=== PATIENT | male | born 1965 | race Caucasian/White ===

== ENCOUNTER 2023-05-24 18:32 | Inpatient (IN) | payer MEDICARE, MEDICAID, SELFPAY ==
[2023-05-24] VITALS (10 sets, daily range): BP systolic 136–166; BP diastolic 94–112; PULSE 109–135; RESP 12–21; TEMP 36.4–36.6; O2SAT 88–100
--- NOTE | ~2023-05-24 | CT_ITS ---
EXAMINATION: CTA chest PE protocol DATE: 05/24/2023 23:14 INDICATION: Hypoxia TECHNIQUE: Computed tomography angiography (CTA) of the chest was performed with 100 mL Omnipaque-350 intravenous contrast timed to evaluate the pulmonary arteries. Coronal maximum intensity projection 3D-reconstructions were created by the technologist. The dose-length product (DLP) was 469.98 mGy-cm. Automated exposure control and iterative reconstruction technique were employed. COMPARISON: None. FINDINGS: The pulmonary arteries are well-opacified. No pulmonary embolism is identified. There are s mall to moderate-sized pleural effusions. Cardiomegaly is noted. There is bilateral hilar and mediast inal lymphadenopathy. There is no pneumothorax. There are airspace opacities medially in the upper lo bes as well as in the dependent aspect of the lower lobes. There is smooth interlobular septal [place]. There is moderate thoracic spondylosis. There is severe spondylosis of the visualized lower cer vical spine. There is a small pericardial effusion. There is a 3 mm nonobstructing stone of the left kidney. IMPRESSION: 1. No pulmonary embolus identified. 2. Cardiomegaly with pulmonary edema. 3. Airspace opacities of the upper and lower lobes, consistent with pneumonia. 4. Small to moderate-sized pleural effusions. Reviewed, dictated and finalized at location F.
--- NOTE | ~2023-05-24 | XR_ITS ---
EXAMINATION: XR chest 1V portable INDICATION: Shortness of breath TECHNIQUE: Portable AP chest at 2001 hours COMPARISON: 06/11/2010 FINDINGS: Cardiomegaly is noted. There are diffuse interstitial and airspace opacities. Small pleural effusions are suggested. There is no pneumothorax. IMPRESSION: 1. Diffuse lung disease which may reflect pneumonia/or pulmonary edema. 2. Cardiomegaly. Reviewed, dictated and finalized at location F.
--- NOTE | 2023-05-24 19:00 | PC.NURSE ---
pt's , Anne, called wanting to know the status of pt. This RN explained to that pt has just arrived to the ED and that he is stable at this time and we are waiting for a provider to see him. pt's states, Well when you get any results back you WILL have the doctor call me specifically with his results and if he needs to be admitted he will need to be transferred to [facility] This RN made aware that decision is out of my control and that when we get more results we will keep her updated. pt's continued to state that she is his and she will be making the decisions. pt is alert and oriented x4 and able to make his own medical decisions. Will call pt's with any updates.
--- NOTE | 2023-05-24 19:31 | ED.GENADULT ---
HPI - General Adult General Chief complaint: Shortness of Breath/Dyspnea Stated complaint: SOB Time Seen by Provider: 05/24/23 19:00 History of Present Illness HPI narrative: This is a 57-year-old male presenting for difficulty breathing. Patient is a poor historian and knows very little about his medical history. 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 He says his medical problems include blindness, autoimmune disease and bone disease but he cannot tell me what any of those things are. He does state that he takes inhalers prn. Patient says that he has been having worsening shortness of breath for the last 3-5 days. He has been taking inhalers with some improvement. Patient has a productive cough. He denies fever chills chest pain abdominal pain or lower extremity edema. Related Data Allergies Allergy/AdvReac Type Severity Reaction Status Date / Time venom-honey bee Allergy Unknown SWELLING Verified 08/02/13 19:45 Cat Dander Allergy Mild Uncoded 08/02/13 19:45 HAY Allergy Mild Uncoded 02/22/08 16:30 Exam Narrative: APPEARANCE: patient appears chronically unwell Head: atraumatic. EYES: Right enucleation, left cataracts, blind NOSE: Atraumatic NECK: Trachea midline RESPIRATORY: scattered rhonchi CARDIOVASCULAR: tachycardic, no peripheral edema ABDOMINAL: soft nontender MUSCULOSKELETAl: No obvious deformities NEURO: Alert. Moving 4/4 extremities SKIN:: Warm, dry. Normal color PSYCHIATRIC: paranoid Course Vital Signs Vital signs: Vital Signs Temperature 98 F 05/24/23 18:43 Pulse Rate 128 H 05/24/23 18:43 Respiratory Rate 12 05/24/23 18:43 Blood Pressure 166/112 H 05/24/23 18:43 Pulse Oximetry 93 05/24/23 18:43 Oxygen Delivery Room Air 05/24/23 18:43 Temperature 97.6 F 05/24/23 23:26 Pulse Rate 109 H 05/25/23 01:01 Respiratory Rate 12 05/25/23 01:01 Blood Pressure 143/104 H 05/25/23 01:01 Pulse Oximetry 96 05/25/23 01:01 Oxygen Delivery Nasal Cannula 05/24/23 23:26 Oxygen Flow Rate 2 05/24/23 23:26 Medical Decision Making [facility] Narrative Medical decision making narrative: -Course: 57-year-old male presenting with difficulty breathing. Workup significant for multifocal pneumonia. White count elevated at 14.9. Patient has bilateral pleural effusions, cardiomegaly w/ pulmoary edema and elevated BNP. Patient denies history of heart failure but is a very poor historian. No echocardiogram in our system. given 40 mg of Lasix. Troponin is slightly elevated. EKG shows ST depressions. Will continue to trend. Given 1 dose of Lovenox for possible ACS. Patient has been placed on antibiotics for community-acquired pneumonia. He was given breathing treatments. Patient be admitted to the hospital for further management of his pneumonia and respiratory failure. -DDX includes but is not limited to: CHF, pneumonia, pulmonary embolism, COPD exacerbation no restrictive lung disease -Independent interpretation of studies: white count 14.9. Hemoglobin 13.2 initial lactic 2.2. -> 0.9 BNP 7000. CTA showed: 1. No pulmonary embolus identified. 2. Cardiomegaly with pulmonary edema. 3. Airspace opacities of the upper and lower lobes, consistent with pneumonia. 4. Small to moderate-sized pleural effusions. Independent EKG interpretation: Rhythm [sinus], Rate [122], [place] -[normal], PA -[normal], QRS [narrow], QTC [normal], T waves -[negative for concerning inversions], ST Segments - ST depressions V4 through V6, 1,2, aVL Final interpretations: sinus tachycardia -Discussion of Management/Consultants: Fabian - Hospitalist -Interventions: ceftriaxone, azithromycin, DuoNeb treatment, magnesium, dexamethasone -Shared decision making / Disposition: admitted Vital Signs Vital Signs: Vital Signs Temperature 98 F 05/24/23 18:43 Pulse Rate 128 H 05/24/23 18:43 Respiratory Rate 12 05/24/23 18:43 Blood Pressure 166/112 H 05/24/23
--- NOTE | 2023-05-24 19:49 | ECG_ITS ---
Measurements Intervals [place] Rate: 122 P: 51 WI: 148 QRS: 11 QRSD: 108 T: 197 QT: 310 QTc: 442 Interpretive Statements SINUS TACHYCARDIA DELAYED PRECORDIAL R/S TRANSITION LEFT VENTRICULAR HYPERTROPHY AND ST-T CHANGE CONSIDER INFERIOR INFARCT, AGE INDETERMINATE BASELINE ARTIFACT- I, III, AVL ABNORMAL ECG NO PREVIOUS ECG AVAILABLE FOR COMPARISON Electronically Signed On 05-25-2023 6:35:14 CDT by Conner Freed D.O.
[2023-05-24] MEDS: IPRATROPIUM 0.5 MG/ALBUTEROL SULFATE 2.5 MG AMPUL.NEB 3 ML 9 ML INHALATION (20:12)
[2023-05-24] MEDS: MAGNESIUM SULF 2 GM/WATER 50ML 2 GM/50 ML BAG IVPB (20:26)
[2023-05-24] MEDS: dexAMETHasone SOD PHOS INJ 10 MG/ML 1 ML VIAL IV PUSH (20:26)
[2023-05-24 20:27] LABS: Alveolar/Arterial O2 Gradient 88.4 mmHg; Base Excess ABG -1.4 mEq/l (+/-2.0); Fractional Inspired Oxygen 28 %; HCO3 ABG 21.9 mEq/l (22.0-26.0); Oxygen Content ABG 18.1 %vol (16.0-22.0); Oxygen Saturation ABG 95.2 % (95.0-100.0); Oxyhemoglobin 92.5 % THb (90.0-100.0); PCO2 ABG 33.1 mmHg (35.0-45.0); PO2 ABG 72.2 mmHg (80.0-100.0); PO2 FiO2 Ratio Arterial Blood 2.58 %; Total Hemoglobin 13.9 g/dL (12.0-18.0); pH ABG 7.439 (7.350-7.450)
[2023-05-24 20:28] LABS: Device NASAL CANNULA; Modified Allen's Test Pass; Site Drawn LEFT RADIAL
[2023-05-24 20:35] LABS: Basophils Percent Auto 0.2 % (0.2-1.2); Eosinophils Absolute Auto 0.1 K/mm3 (0-0.3); Eosinophils Percent Auto 0.7 % (0-4.4); Hemoglobin 13.2 g/dL (14.0-18.0); Immature Granulocyte Absolute 0.09 K/mm3 (0.00-0.031); Immature Granulocyte Percent A 0.6 % (0-0.5); Lymphocytes Absolute Auto 1.46 K/mm3 (0.9-3.2); Lymphocytes Percent Auto 9.8 % (18.3-44.2); Mean Corpuscular HGB Conc 32.2 g/dl (32-36); Mean Corpuscular Hemoglobin 29.3 pg (26-34); Mean Corpuscular Volume 91.1 fl (80-100); Mean Platelet Volume 9.6 fl (7.4-10.4); Monocytes Absolute Auto 0.9 K/mm3 (0.1-0.6); Monocytes Percent Auto 5.8 % (2.6-8.5); Neutrophils Absolute Auto 12.3 K/mm3 (1.3-6.7); Neutrophils Percent Auto 82.9 % (45.5-73.1); Platelet Count Result 309 k/mm3 (150-375); White Blood Count 14.9 K/mm3 (4.5-10.0)
[2023-05-24 20:55] LABS: Lactic Acid Reflex 2.2 mmol/L (0.7-2.0)
[2023-05-24 21:15] LABS: NT Pro B Type Natriuretic Pept 7050 pg/mL (19.9-100); Partial Thromboplastin Time 34.3 Seconds (22.3-36.8)
[2023-05-24 21:26] LABS: D Dimer 0.86 ug/mL (<0.48)
[2023-05-24 21:27] LABS: Alanine Aminotransferase 17 U/L (6-50); Bilirubin,Total 0.8 mg/dL (0.2-1.3); Blood Urea Nitrogen 21 mg/dL (9-20); Calcium 8.8 mg/dL (8.4-10.2); Estimated CRCL calculation 62 ml/min; Estimated Glomerular Filt Rate > 60; Magnesium 1.8 mg/dL (1.6-2.3); Potassium 3.5 mmol/L (3.4-5.0); Sodium 138 mmol/L (137-145)
[2023-05-24] MEDS: AZITHROMYCIN 500 MG/NS 250 ML 500 MG/250 ML BAG 250 MG IVPB (21:47)
[2023-05-24 21:49] LABS: Alkaline Phosphatase 65 U/L (38-126); Anion Gap 7 mmol/L (8-16); Aspartate Amino Transferase 34 U/L (17-59); Carbon Dioxide 25 mmol/L (22-30); Chloride 106 mmol/L (98-107); Glucose 93 mg/dL (65-110)
[2023-05-24 23:33] LABS: Reflex Lactic Acid Yes or No Add Lactic
[2023-05-25] LABS: Lactic Acid 0.9 mmol/L (0.7-2.0)
--- NOTE | 2023-05-25 00:48 | ECG_ITS ---
Measurements Intervals [place] Rate: 109 P: 59 WA: 151 QRS: 3 QRSD: 105 T: 129 QT: 356 QTc: 480 Interpretive Statements SINUS TACHYCARDIA POSSIBLE LEFT ATRIAL ENLARGEMENT DELAYED PRECORDIAL R/S TRANSITION LEFT VENTRICULAR HYPERTROPHY AND ST-T CHANGE BORDERLINE ST-T WAVE ABNORMALITY- INFERIOR LEADS BASELINE ARTIFACT- I, III, AVR, AVL, AVF, V5-V6 ABNORMAL ECG COMPARED TO ECG 05/24/2023 20:07:28 NO SIGNIFICANT CHANGES Electronically Signed On 05-25-2023 6:39:36 CDT by Conner Freed D.O.
[2023-05-25 01:01] VITALS: BP 143/104; PULSE 109; RESP 12; O2SAT 96
--- NOTE | 2023-05-25 01:14 | PM.IMHP ---
H&P: HPI History of Present Illness Date/Time: 05/25/23 01:14 Chief Complaint: shortness of breath Narrative: This is a 57-year-old male with past medical history significant for blindness. patient presents to the emergency room due to shortness of breath, cough ,sputum production, fevers and chills. In emergency room patient preliminary workup was significant for chest x-ray with infiltrates, patient was found to have elevated brain natriuretic peptide had 7050, troponin x2 0.184, 0.208 respectively. Patient is been admitted for further evaluation management and treatment. EXAMINATION: XR chest 1V portable INDICATION: Shortness of breath TECHNIQUE: Portable AP chest at 2001 hours COMPARISON: 06/11/2010 FINDINGS: Cardiomegaly is noted. There are diffuse interstitial and airspace opacities. Small pleural effusions are suggested. There is no pneumothorax. IMPRESSION: 1. Diffuse lung disease which may reflect pneumonia/or pulmonary edema. 2. Cardiomegaly. EXAMINATION: CTA chest PE protocol DATE: 05/24/2023 23:14 INDICATION: Hypoxia TECHNIQUE: Computed tomography angiography (CTA) of the chest was performed with 100 mL Omnipaque-350 intravenous contrast timed to evaluate the pulmonary arteries. Coronal maximum intensity projection 3D-reconstructions were created by the technologist. The dose-length product (DLP) was 469.98 mGy-cm. Automated exposure control and iterative reconstruction technique were employed. COMPARISON: None. FINDINGS: The pulmonary arteries are well-opacified. No pulmonary embolism is identified. There are small to moderate-sized pleural effusions. Cardiomegaly is noted. There is bilateral hilar and mediastinal lymphadenopathy. There is no pneumothorax. There are airspace opacities medially in the upper lobes as well as in the dependent aspect of the lower lobes. There is smooth interlobular septal thickening. There is moderate thoracic spondylosis. There is severe spondylosis of the visualized lower cervical spine. There is a small pericardial effusion. There is a 3 mm nonobstructing stone of the left kidney. IMPRESSION: 1. No pulmonary embolus identified. 2. Cardiomegaly with pulmonary edema. 3. Airspace opacities of the upper and lower lobes, consistent with pneumonia. 4. Small to moderate-sized pleural effusions. Review of Systems Review of Systems: shortness of breath, cough sputum production. Psychiatric: Psychiatric: Reports other ( paranoid believes and delusions patient states his been investigated) PMFSH Social History Social History Smoking status: Former smoker Additional smoking assessment comments: vapes Alcohol intake: never Substance use: never Do You Feel Safe in your Home?: Yes Lack of Transportation: No Lack of Food: Never True Current Housing: I Have Housing Concerned About Future Housing: No Difficulty Paying Gas/Electric Bills: No Difficulty Paying for Meds: No Currently Unemployed: No Education: Decline to Answer Difficulty w/ Childcare or Family Care: No Spiritual care concerns: No Meds Home Medications and Allergies Home Medications Medication Instructions Recorded Confirmed Type atropine 1 % eye drops 1 drp ophthalmic (eye) BID 05/25/23 05/25/23 History cyclobenzaprine 5 mg tablet 5 mg PO BID 05/25/23 05/25/23 History epinephrine 0.3 mg/0.3 mL 0.3 mg subcut ONCE anaphylaxis 05/25/23 05/25/23 History injection, auto-injector levothyroxine 200 mcg tablet 200 mcg PO DAILY 05/25/23 05/25/23 History (Synthroid) naproxen 500 mg tablet 500 mg PO DAILY 05/25/23 05/25/23 History prednisolone acetate 1 % eye 1 drp ophthalmic (eye) DAILY 05/25/23 05/25/23 History drops,suspension prednisone 5 mg tablet 5 mg PO DAILY 05/25/23 05/25/23 History Allergies Allergy/AdvReac Type Severity Reaction Status Date / Time venom-honey bee Allergy Unknown SWELLING Verified 08/02/13 19:45 Cat Dander Allergy Mild Uncoded 08/02
[2023-05-25 01:17] LABS: Troponin I 0.184 ng/mL (0.000-0.034)
[2023-05-25] MEDS: FUROSEMIDE INJ 40 MG/4 ML VIAL IV PUSH (01:18)
[2023-05-25 01:24] LABS: Troponin I 0.208 ng/mL (0.000-0.034)
[2023-05-25] MEDS: ENOXAPARIN 80 MG/0.8 ML SYRINGE 76 MG SUB-Q (01:59)
[2023-05-25 02:55] VITALS: BP 140/97; PULSE 102; RESP 12; O2SAT 96
[2023-05-25 03:08] VITALS: BP 146/98; PULSE 101; RESP 15; O2SAT 95
--- NOTE | 2023-05-25 03:23 | ADMGEN ---
0320: This patient, Adam Sanchez, was admitted to IMU Room 202-01. Patient/family oriented to hospital policies and general routines including ID bracelet, bed and alarms, visiting hours, pain management, procedures, bathroom and other care routines, personal items, smoking policy, room service/diet, and visiting hours. Information on how to activate the Rapid Response Team has been discussed. Patient/Family are encouraged to report perceived risks to care and to ask questions if they do not understand what they are told or what they should do.
[2023-05-25 03:41] VITALS: BP 141/95; PULSE 111; RESP 16; TEMP 36.4; O2SAT 95
[2023-05-25 03:44] VITALS: BMI 24.5
--- NOTE | 2023-05-25 03:53 | PC.NURSE ---
0350: RN to bedside for call light. Patient found out of bed, standing up. RN reminded patient that due to multiple risk factors staff need to be present when exiting the bed or ambulating. Patient became agitated repeating, I need to stand up to pee. RN attempted to reason with patient with no success stating, I'll call my and have her transfer me to [facility]. RN stated that he could discuss this with the doctor. 0355: RN reported to room for bed alarm. RN found patient on his knees in bed to use urinal. Again, the patient became aggressive. RN asked the patient to be respectful and that she was here to help keep him safe. Patient stated he wanted to check himself out. RN contacted MD Peralta to inform her of patients' desire to leave AMA and started the appropriate paperwork. Care continues.
--- NOTE | 2023-05-25 04:13 | PC.NURSE ---
Addendum entered by Kayce Garcia RN 05/25/23 04:16: Time of notification to assembler bicycle [id number] Original Note: 0351 Primary Care Nurse FABIAN Duckworth called this charge nurse to notify of patients wishes to leave AMA. Patient in the background yelling at FABIAN Duckworth I want to leave! This always happens to me!
--- NOTE | 2023-05-25 04:17 | PC.NURSE ---
0415: MD Peralta called IMU and asked to be transferred to the patients' room as she is unable to come to bedside at this time.
--- NOTE | 2023-05-25 04:19 | PC.NURSE ---
0406: Patient becoming verbally aggressive with RN. RN asked patient to lower his voice. Patient began exhibiting signs of physical aggression. RN requested another staff member to call security.
--- NOTE | 2023-05-25 04:47 | PC.NURSE ---
0437: Patient signed AMA paperwork and was escorted to the lobby via wheelchair with RN and two security officers. Charge nurse and storage facility housekeeper informed.
== END 2023-05-25 04:37 | disposition left against medical advice (07) | DRG 195 ==
LOC: ANHED 05-25 01:57 → ANHIMU 05-25 03:02
PROVIDERS: Admitting Provider Internal Medicine; Emergency Provider Emergency Medicine; Visit Provider Internal Medicine
DX: J18.9 Pneumonia, unspecified organism (principal); I50.9 Heart failure, unspecified; H54.7 Unspecified visual loss; Z87.891 Personal history of nicotine dependence
CPT/HCPCS: 36415; 36600; 71045; 71275; 80053; 82805; 83605; 83735; 83880; 84484; 85025; 85380; 85610; 85730; 93005; 94640; 96365; 96366; 96367; 96368; 96375; 99285; A9270; J0456; J0696; J1100; J1650; J1940; J3475; Q9967